=== PATIENT | male | born 1950 | race African-American/Black ===

== ENCOUNTER → 2016-10-27 | Outpatient (CLI) | payer OTHER, MEDICAID ==
[~2016-10-27] MED LIST: ALLOPURINOL100 MG PO; ATOXIMETIN-B1 CAP PO; BIAXIN500 MG PO; CLARITIN10 MG PO; DILANTIN100 MG PO; LIPITOR40 MG PO; LOVASTATIN20 MG PO; PRAVACHOL20 MG PO; TRAMADOL HCL50 MG PO; VICODIN 5/500 505 MG PO
== END | disposition home or self-care (01) ==
LOC: US 07:19
DX: Z13.6 Encounter for screening for cardiovascular disorders (principal); I73.9 Peripheral vascular disease, unspecified; M79.605 Pain in left leg; Z87.891 Personal history of nicotine dependence

== ENCOUNTER → 2017-08-19 | Outpatient (CLI) | payer OTHER, MEDICAID | END | disposition home or self-care (01) | LOC: RAD 09:48 | DX: M25.561 Pain in right knee (principal); M25.461 Effusion, right knee ==

== ENCOUNTER 2018-02-03 14:32 | Emergency (ER) | payer OTHER, MEDICAID ==
[~2018-02-03] VITALS: Ht 172.7 cm; Wt 80.3 kg
[2018-02-03 15:08] LABS: BASO # 0.1 10*3/uL (0.0-0.1); BASO % 0.3 % (0.0-1.0); EOS % 0.2 % (1.0-4.0); HEMOGLOBIN 14.6 g/dl (14.0-18.0); LYMPH # 2.8 10*3/uL (1.3-4.4); MEAN CELL VOLUME 99.5 fl (80.0-94.0); MEAN CORPUSCULAR HGB CONC 33.2 g/dl (33.0-37.0); MEAN PLATELET VOLUME 8.3 fl (9.6-12.3); MONO # 1.5 10*3/uL (0.1-1.0); NEUT # 11.9 10*3/uL (2.3-7.9); NEUT % 72.9 % (47.0-73.0); PLATELET COUNT AUTOMATED 320 10*3/uL (130-400); RED BLOOD COUNT 4.42 10*6/uL (4.50-5.90); RED CELL DISTRI WIDTH 13.1 % (0-14.5); WHITE BLOOD COUNT 16.3 10*3/uL (4.8-10.8)
[2018-02-03 15:21] LABS: ALBUMIN 3.7 gm/dl (3.1-4.5); ALKALINE PHOSPHATASE 119 U/L (45-117); BUN 9 mg/dl (7-24); CHLORIDE 100 mmol/L (98-107); CREATININE 1.09 mg/dL (0.70-1.30); POTASSIUM 4.3 mmol/L (3.5-5.1); SGOT/AST 19 IU/L (3-35); SGPT/ALT 36 U/L (12-78); SODIUM 136 mmol/L (136-145); TOTAL PROTEIN 8.4 gm/dL (6.4-8.2)
[2018-02-03 15:44] LABS: BILIRUBIN NEGATIVE (NEGATIVE); BLOOD 3+ (NEGATIVE); CLARITY SL CLOUDY (CLEAR); COLOR YELLOW (YELLOW); GLUCOSE NEGATIVE (NEGATIVE); KETONE NEGATIVE (NEGATIVE); LEUKO ESTERASE TRACE (NEGATIVE); NITRITE NEGATIVE (NEGATIVE); PH 7.5 (5.0-9.0); SPECIFIC GRAVITY <= 1.005 (1.005-1.030)
[2018-02-03 15:51] LABS: BACTERIA 1+; RBC TNTC rbc/hpf (0-2); WBC TNTC wbc/hpf (0-5)
== END 2018-02-03 19:32 | disposition short-term general hospital (02) ==
LOC: ED 14:32
PROVIDERS: Nurse Practitioner Family
DX: N49.2 Inflammatory disorders of scrotum (principal); Z98.890 Other specified postprocedural states; Z79.899 Other long term (current) drug therapy

== ENCOUNTER → 2018-06-02 | Outpatient (CLI) | payer OTHER | END | disposition home or self-care (01) | LOC: RESCLI 13:22 | DX: F32.9 Major depressive disorder, single episode, unspecified (principal); N52.9 Male erectile dysfunction, unspecified; F41.9 Anxiety disorder, unspecified; E78.5 Hyperlipidemia, unspecified; E55.9 Vitamin D deficiency, unspecified; F17.210 Nicotine dependence, cigarettes, uncomplicated; Z79.899 Other long term (current) drug therapy; Z88.8 Allergy status to other drugs, medicaments and biological substances ==

== ENCOUNTER → 2019-05-21 | Outpatient (CLI) | payer OTHER | END | disposition home or self-care (01) | LOC: RAD 12:32 | DX: M25.462 Effusion, left knee (principal); M25.511 Pain in right shoulder ==

== ENCOUNTER → 2019-07-05 | Outpatient (CLI) | payer OTHER ==
[2019-07-05 17:02] LABS: BODY FLUID WBC 226 /uL
[2019-07-05 18:52] LABS: BF LYMPHOCYTES 27 %; BF MACROPHAGES 62 %; BF NEUTROPHILS 10 %
== END | disposition home or self-care (01) ==
LOC: ORTHO 12:57
PROVIDERS: Orthopaedic Surgery
DX: M25.462 Effusion, left knee (principal)

== ENCOUNTER 2019-12-21 22:19 | Emergency (ER) | payer MEDICARE, MEDICAID ==
[~2019-12-21] VITALS: Ht 172.7 cm; Wt 83.0 kg
[2019-12-22] MEDS ORDERED: AMOXICILLIN500 M2 PO (00:28)
[2019-12-22] MEDS ORDERED: Motrin,Rufen800 MG PO (00:29)
== END 2019-12-22 01:13 | disposition home or self-care (01) ==
LOC: ED 22:19
DX: S00.83XA Contusion of other part of head, initial encounter (principal); S00.03XA Contusion of scalp, initial encounter; E78.00 Pure hypercholesterolemia, unspecified; F17.200 Nicotine dependence, unspecified, uncomplicated; Z79.899 Other long term (current) drug therapy; Y08.89XA Assault by other specified means, initial encounter; Y93.9 Activity, unspecified; Y92.89 Other specified places as the place of occurrence of the external cause; Y99.8 Other external cause status

== ENCOUNTER 2020-12-23 10:56 | Emergency (ER) | payer MEDICARE, MEDICAID ==
[~2020-12-23] VITALS: Ht 172.7 cm; Wt 81.6 kg
[~2020-12-23 10:56] MED LIST changes: +AMOXICILLIN500 M2 PO; +Motrin,Rufen800 MG PO
[2020-12-23] MEDS ORDERED: NAPROXEN250 MG PO (11:48)
[2020-12-23] MEDS ORDERED: TYLENOL325 M1 PO (11:48)
== END 2020-12-23 11:52 | disposition home or self-care (01) ==
LOC: ED 10:56
DX: S49.91XA Unspecified injury of right shoulder and upper arm, initial encounter (principal); Z79.899 Other long term (current) drug therapy; Z98.890 Other specified postprocedural states; X58.XXXA Exposure to other specified factors, initial encounter; Y93.89 Activity, other specified; Y92.89 Other specified places as the place of occurrence of the external cause; Y99.8 Other external cause status

== ENCOUNTER 2023-10-11 16:31 | Emergency (ER) | payer MEDICARE, MEDICAID ==
[~2023-10-11] VITALS: Ht 172.7 cm; Wt 76.7 kg
[~2023-10-11 16:31] MED LIST changes: +NAPROXEN250 MG PO; +TYLENOL325 M1 PO
[2023-10-11 18:46] LABS: BILIRUBIN 2+ (Negative); BLOOD 3+ (Negative); CLARITY Cloudy (Clear); COLOR Dark Yellow (Yellow); GLUCOSE Negative (Negative); KETONE Trace (Negative); LEUKO ESTERASE 2+ (Negative); NITRITE Negative (Negative); PH 6.5 (4.5-8.0); SPECIFIC GRAVITY 1.025 (1.001-1.030)
[2023-10-11 18:54] LABS: BACTERIA 1+; MUCOUS 1+; RBC 51-100 rbc/hpf (0-2); WBC 31-40 wbc/hpf (0-5)
[2023-10-11] MEDS ORDERED: Ceftriaxone Sodium 1 GM/10 ML SYR IV ONE (19:00)
[2023-10-11 19:12] LABS: BASO % 0.3 % (0.0-1.0); EOS % 0.1 % (1.0-4.0); HEMATOCRIT 40.8 % (42.0-52.0); LYMPH # 2.6 10*3/uL (1.3-4.4); LYMPH % 16.7 % (27.0-41.0); MEAN CELL VOLUME 102.3 fl (80.0-94.0); MEAN CORPUSCULAR HGB 34.1 pg (27.0-31.0); MEAN CORPUSCULAR HGB CONC 33.3 g/dl (33.0-37.0); MEAN PLATELET VOLUME 8.4 fl (9.6-12.3); MONO # 1.4 10*3/uL (0.1-1.0); MONO % 8.7 % (3.0-9.0); NEUT # 11.6 10*3/uL (2.3-7.9); NEUT % 73.9 % (47.0-73.0); PLATELET COUNT AUTOMATED 264 10*3/uL (130-400); RED BLOOD COUNT 3.99 10*6/uL (4.50-5.90); RED CELL DISTRI WIDTH 13.4 % (0-14.5); WHITE BLOOD COUNT 15.6 10*3/uL (4.8-10.8)
[2023-10-11 19:28] LABS: ALKALINE PHOSPHATASE 118 U/L (46-116); BUN 10 mg/dl (9-23); CHLORIDE 104 mmol/L (98-107); POTASSIUM 3.9 mmol/L (3.4-5.1); SGPT/ALT 28 U/L (5-49); TOTAL PROTEIN 7.5 gm/dL (6.0-8.0)
[2023-10-11] MEDS ORDERED: Ciprofloxacin Hydrochloride 500 MG TAB PO ONE (19:30)
[2023-10-11] MEDS ORDERED: CIPRO500 MG PO (19:53)
== END 2023-10-11 20:01 | disposition home or self-care (01) ==
LOC: ED 16:31
PROVIDERS: Internal Medicine
DX: N45.3 Epididymo-orchitis (principal); D72.829 Elevated white blood cell count, unspecified; D53.9 Nutritional anemia, unspecified; E78.00 Pure hypercholesterolemia, unspecified; Z98.890 Other specified postprocedural states

== ENCOUNTER → 2023-10-19 | Outpatient (CLI) | payer OTHER, MEDICAID ==
[~2023-10-19] MED LIST changes: +CIPRO500 MG PO
[2023-10-19 09:04] LABS: BILIRUBIN Negative (Negative); BLOOD Trace-Intact (Negative); CLARITY Clear (Clear); COLOR Dark Yellow (Yellow); GLUCOSE Negative (Negative); KETONE Trace (Negative); LEUKO ESTERASE Trace (Negative); NITRITE Negative (Negative); SPECIFIC GRAVITY 1.025 (1.001-1.030)
[2023-10-19 09:05] LABS: BASO # 0.1 10*3/uL (0.0-0.1); BASO % 0.6 % (0.0-1.0); EOS # 0.2 10*3/uL (0.0-0.4); EOS % 1.9 % (1.0-4.0); HEMATOCRIT 40.9 % (42.0-52.0); LYMPH # 3.3 10*3/uL (1.3-4.4); LYMPH % 41.2 % (27.0-41.0); MEAN CELL VOLUME 106.8 fl (80.0-94.0); MEAN CORPUSCULAR HGB 33.7 pg (27.0-31.0); MEAN CORPUSCULAR HGB CONC 31.5 g/dl (33.0-37.0); MEAN PLATELET VOLUME 8.5 fl (9.6-12.3); MONO # 0.6 10*3/uL (0.1-1.0); MONO % 7.6 % (3.0-9.0); NEUT # 3.8 10*3/uL (2.3-7.9); NEUT % 48.3 % (47.0-73.0); PLATELET COUNT AUTOMATED 393 10*3/uL (130-400); RED BLOOD COUNT 3.83 10*6/uL (4.50-5.90); RED CELL DISTRI WIDTH 13.7 % (0-14.5); WHITE BLOOD COUNT 7.9 10*3/uL (4.8-10.8)
[2023-10-19 10:04] LABS: ALKALINE PHOSPHATASE 234 U/L (46-116); BUN 12 mg/dl (9-23); CHLORIDE 110 mmol/L (98-107); POTASSIUM 4.1 mmol/L (3.4-5.1); SGPT/ALT 104 U/L (5-49); TOTAL PROTEIN 6.2 gm/dL (6.0-8.0)
[2023-10-19 11:18] LABS: MUCOUS 1+
== END | disposition home or self-care (01) ==
LOC: US 01:11 → LAB 01:11 → US 09:30
PROVIDERS: ATTEND Urology
DX: N28.1 Cyst of kidney, acquired (principal); N28.89 Other specified disorders of kidney and ureter; D40.0 Neoplasm of uncertain behavior of prostate; R53.83 Other fatigue; N43.3 Hydrocele, unspecified

== ENCOUNTER → 2024-07-19 | Outpatient (CLI) | payer OTHER, MEDICAID | END | disposition home or self-care (01) | LOC: US 08:34 | PROVIDERS: ATTEND Internal Medicine | DX: N28.1 Cyst of kidney, acquired (principal); R74.8 Abnormal levels of other serum enzymes ==

== ENCOUNTER 2024-12-14 16:00 | Emergency (ER) | payer OTHER, MEDICAID ==
[~2024-12-14] VITALS: Wt 77.1 kg
[2024-12-14 16:43] LABS: BASO % 0.8 % (0.0-1.0); EOS # 0.1 10*3/uL (0.0-0.4); EOS % 1.9 % (1.0-4.0); HEMATOCRIT 49.4 % (42.0-52.0); MEAN CELL VOLUME 102.3 fl (80.0-94.0); MEAN CORPUSCULAR HGB 34.8 pg (27.0-31.0); MEAN PLATELET VOLUME 8.7 fl (9.6-12.3); MONO # 0.6 10*3/uL (0.1-1.0); MONO % 11.9 % (3.0-9.0); NEUT # 1.9 10*3/uL (2.3-7.9); NEUT % 39.1 % (47.0-73.0); PLATELET COUNT AUTOMATED 209 10*3/uL (130-400); RED BLOOD COUNT 4.83 10*6/uL (4.50-5.90); RED CELL DISTRI WIDTH 12.8 % (0-14.5); WHITE BLOOD COUNT 4.9 10*3/uL (4.8-10.8)
[2024-12-14 16:44] LABS: BILIRUBIN 1+ (Negative); BLOOD Trace-Intact (Negative); CLARITY Clear (Clear); COLOR Dark Yellow (Yellow); GLUCOSE Negative (Negative); KETONE 1+ (Negative); LEUKO ESTERASE Trace (Negative); NITRITE Negative (Negative); PH 5.5 (4.5-8.0); SPECIFIC GRAVITY 1.025 (1.001-1.030)
[2024-12-14 17:05] LABS: BACTERIA TRACE; RBC 16-20 rbc/hpf (0-2); WBC 0-2 wbc/hpf (0-5)
[2024-12-14 17:06] LABS: MUCOUS 2+
[2024-12-14 17:21] LABS: POTASSIUM 4.9 mmol/L (3.4-5.1); TOTAL PROTEIN 6.7 gm/dL (6.0-8.0)
[2024-12-14] MEDS ORDERED: Acetaminophen/Hydrocodone 5 MG/325 MG TABLET PO ONE (17:40)
[2024-12-14] MEDS ORDERED: PREDNISONE50 MG PO (20:14)
[2024-12-14] MEDS ORDERED: methylPREDNISolone sod succ 125 MG VIAL IM ONE (20:15)
== END 2024-12-14 20:22 | disposition home or self-care (01) ==
LOC: ED 16:00
PROVIDERS: Nurse Practitioner Family
DX: S39.012A Strain of muscle, fascia and tendon of lower back, initial encounter (principal); Z79.899 Other long term (current) drug therapy; Z98.890 Other specified postprocedural states; X58.XXXA Exposure to other specified factors, initial encounter; Y93.89 Activity, other specified; Y92.89 Other specified places as the place of occurrence of the external cause; Y99.8 Other external cause status